=== PATIENT | female | born 1985 | race Caucasian/White ===

== ENCOUNTER → 2017-02-18 | Outpatient (CLI) | payer BC ==
[2017-02-18 10:49] LABS: ABSOLUTE EOSINOPHILS # (AUTO) 0.1 10^3/uL (0.0-0.6); ABSOLUTE LYMPHOCYTES (AUTO) 1.2 10^3/uL (0.5-4.7); ABSOLUTE MONOCYTES (AUTO) 0.8 10^3/uL (0.1-1.4); BASOPHILS % (AUTO) 0.1 % (0-2); EOSINOPHILS % (AUTO) 0.7 % (0-6); HEMOGLOBIN 15.1 g/dL (12.0-15.5); HGB HCT DIFFERENCE -0.7; LYMPHOCYTES % (AUTO) 13.4 % (13-45); MEAN CORPUSCULAR HEMOGLOBIN 30.5 pg (27.0-33.4); MEAN CORPUSCULAR HGB CONC 32.8 g/dL (32.0-36.0); MEAN CORPUSCULAR VOLUME 93 fl (80-97); MONOCYTES % (AUTO) 8.4 % (3-13); RED BLOOD COUNT 4.94 10^6/uL (3.72-5.28); RED CELL DISTRIBUTION WIDTH 14.1 % (11.5-14.0); SEGMENTED NEUTROPHILS % (AUTO) 77.4 % (42-78)
[2017-02-18 11:15] LABS: ALANINE AMINOTRANSFERASE 44 U/L (9-52); ALBUMIN 4.3 g/dL (3.5-5.0); ALKALINE PHOSPHATASE 84 U/L (38-126); ANION GAP 11 (5-19); ASPARTATE AMINO TRANSFERASE 34 U/L (14-36); BILIRUBIN,DIRECT 0.4 mg/dL (0.0-0.4); BILIRUBIN,TOTAL 0.8 mg/dL (0.2-1.3); BLOOD UREA NITROGEN 9 mg/dL (7-20); CALCIUM 9.7 mg/dL (8.4-10.2); CARBON DIOXIDE 26 mmol/L (22-30); CHLORIDE 103 mmol/L (98-107); CHOLESTEROL 207.17 mg/dL (0-200); CREATININE RESULT 0.84 mg/dL (0.52-1.25); Direct HDL 65 mg/dL (>40); GLUCOSE 91 mg/dL (75-110); POTASSIUM 4.9 mmol/L (3.6-5.0); SODIUM 140.2 mmol/L (137-145); TOTAL PROTEIN 7.8 g/dL (6.3-8.2); TRIGLYCERIDES 192 mg/dL (<150)
[2017-02-18 11:26] LABS: DIRECT LDL 120 mg/dL (<100)
[2017-02-18 11:31] LABS: VLDL CHOLESTEROL 38.4 mg/dL (10-31)
== END ==
LOC: OD 10:08
PROVIDERS: ATTEND Psychiatry & Neurology Psychiatry
DX: F43.10 Post-traumatic stress disorder, unspecified (principal)
CPT/HCPCS: 36415; 80053; 80061; 84443; 85025

== ENCOUNTER 2017-05-02 01:51 | Emergency (ER) | payer BC ==
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
--- NOTE | 2017-05-02 05:00 | ER Document Report ---
HPI - HPI Patient complains to provider of: twisted ankle Onset: Just prior to arrival Onset/Duration: Sudden Quality of pain: Throbbing Pain Level: 4 Context: 32 yo female twisted right ankle prior to arrival. Hurts to walk on it. No previous injury. Associated Symptoms: None Exacerbated by: Walking Relieved by: Denies Similar symptoms previously: Yes - long time ago Recently seen / treated by doctor: No - ROS ROS below otherwise negative: Yes Systems Reviewed and Negative: Yes All other systems reviewed and negative - REPRODUCTIVE Reproductive: DENIES: : - DERM Skin Color: Normal Past Medical History - General Information source: Patient - Social History Smoking Status: Current Every Day Smoker Frequency of alcohol use: Occasional Drug Abuse: None Occupation: convenience store Family History: CAD, Hyperlipidemia, Hypertension, Malignancy, Thyroid Disfunction Pulmonary Medical History: Reports: Hx Asthma Neurological Medical History: Reports: Hx Migraine Renal/ Medical History: Denies: Hx Peritoneal Dialysis GI Medical History: Reports: Hx Gastroesophageal Reflux Disease Musculoskeltal Medical History: Reports Hx Muscle Spasm - taken baclofen in past , Reports Hx Musculoskeletal Trauma - low back pain Psychiatric Medical History: Reports: Hx Anxiety, Hx Attention Deficit Hyperactivity Disorder Surgical Hx: Negative - Immunizations Immunizations up to date: No Hx Diphtheria, Pertussis, Tetanus Vaccination: No Vertical Provider Document - CONSTITUTIONAL Agree With Documented VS: Yes Exam Limitations: No Limitations General Appearance: No Apparent Distress - INFECTION CONTROL TRAVEL OUTSIDE OF THE [place] IN LAST 30 DAYS: No - HEENT HEENT: Normocephalic - RESPIRATORY O2 Sat by Pulse Oximetry: 100 - MUSCULOSKELETAL/EXTREMETIES Musculoskeletal/Extremeties: MAEW, FROM, Tender, Edema - dorsal lateral mid foot (non tender base of 5th) and lateral malleolus, Eccymosis - NEURO Level of Consciousness: Awake, Alert, Appropriate Motor/Sensory: No Motor Deficit, No Sensory Deficit - DERM Integumentary: Warm, Dry Course - Vital Signs Vital signs: Temp Pulse Resp BP Pulse Ox 97.4 F 97 20 95/59 L 100 05/02/17 02:02 05/02/17 02:02 05/02/17 02:02 05/02/17 02:02 05/02/17 02:02 Procedures - Immobilization Right Ankle Time completed: 06:05 Pre-Proc Neuro Vasc Exam: Normal Immobilizer type: Crutches, Posterior ankle Performed by: RN Post-Proc Neuro Vasc Exam: Normal Alignment checked and good: Yes Discharge - Discharge Clinical Impression: Right ankle sprain Qualifiers: Encounter type: initial encounter Involved ligament of ankle: unspecified ligament Qualified Code(s): S93.401A - Sprain of unspecified ligament of right ankle, initial encounter Right foot sprain Qualifiers: Encounter type: initial encounter Qualified Code(s): S93.601A - Unspecified sprain of right foot, initial encounter Condition: Good Disposition: HOME, SELF-CARE Instructions: Anti-Inflammatory Medication ([facility]), Use of Crutches ([facility]), Sprain ([facility]), Sprained Ankle ([facility]) Additional Instructions: elevate splint over the weekend crutches see the orthopedist if persists motrin for pain Please complete the patient satisfaction survey if you get one, and return it.. If you do not receive a survey, then you can go to the [facility] website, [email or web address] and place your comments about your very good care. Thank you very much. It was a pleasure being your medical provider today. Prescriptions: Ibuprofen [Motrin 800 mg Tablet] 800 mg PO Q8HP PRN #30 tablet PRN Reason: Forms: Return to Work Referrals: DL CAMARENA MD [ACTIVE STAFF] - Follow up as needed
[2017-05-02] MEDS ORDERED: IBUPROFEN 800 MG TABLET PO ONE (05:02)
--- NOTE | 2017-05-02 05:40 | RADIOLOGY REPORT (SQ) ---
EXAM DESCRIPTION: FOOT RIGHT COMPLETE COMPLETED DATE/TIME: 05/02/2017 5:27 am REASON FOR STUDY: injury COMPARISON: 07/17/2013. NUMBER OF VIEWS: Three views. TECHNIQUE: AP, lateral and oblique radiographic images acquired of the right foot. LIMITATIONS: None. FINDINGS: MINERALIZATION: Normal. BONES: No acute fracture or dislocation. No worrisome bone lesions. 0.4 cm chronic ossicular fragme nt at the medial aspect of the right 1st interphalangeal joint, stable compared with prior exam from July 2013. Small plantar fascial enthesophyte. JOINTS: No effusions. SOFT TISSUES: No soft tissue swelling. No foreign body. OTHER: No other significant finding. IMPRESSION: NO RADIOGRAPHIC EVIDENCE OF ACUTE INJURY. TECHNICAL DOCUMENTATION: JOB ID: [id number] [employer]- All Rights Reserved
[2017-05-02 06:14] VITALS: BP 121/81
== END 2017-05-02 06:12 | disposition home or self-care (01) ==
LOC: EEVIPCON 01:51 → ER 01:51
PROC: 2W3QX1Z Immobilization of Right Lower Leg using Splint (ICD-10-PCS; principal; 2017-05-02)
DX: S93.401A Sprain of unspecified ligament of right ankle, initial encounter (principal); S93.601A Unspecified sprain of right foot, initial encounter; X58.XXXA Exposure to other specified factors, initial encounter; F17.200 Nicotine dependence, unspecified, uncomplicated; K21.9 Gastro-esophageal reflux disease without esophagitis
CPT/HCPCS: 99283

== ENCOUNTER 2018-03-17 06:57 | Emergency (ER) | payer BC ==
[2018-03-17] MEDS ORDERED: IPRATROPIUM/ALBUTEROL 0.5-2.5 MG/3 ML AMPUL NEB ONE ×2 (07:08→07:17)
[2018-03-17] MEDS ORDERED: METHYLPREDNISOLONE INJ 125 MG/2 ML SDV IV ONE (07:15)
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
[2018-03-17] MEDS ORDERED: CLONAZEPAM 1 MG TABLET PO ONE (07:44)
--- NOTE | 2018-03-17 07:56 | RADIOLOGY REPORT (SQ) ---
EXAM DESCRIPTION: XR CHEST 1 VIEW COMPLETED DATE/TME: 03/17/2018 07:15 CLINICAL HISTORY: 32 years Female, sob COMPARISON: 1.7.14 NUMBER OF VIEWS/TECHNIQUE: 1/AP FINDINGS: Adequate lung volume, clear parenchyma, normal cardiac silhouette, and intact bony thorax. IMPRESSION: No acute cardiopulmonary findings.
[2018-03-17 08:14] LABS: ABSOLUTE EOSINOPHILS # (AUTO) 0.1 10^3/uL (0.0-0.6); ABSOLUTE LYMPHOCYTES (AUTO) 2.9 10^3/uL (0.5-4.7); ABSOLUTE MONOCYTES (AUTO) 0.8 10^3/uL (0.1-1.4); ABSOLUTE NEUT (AUTO) 4.7 10^3/uL (1.7-8.2); BASOPHILS % (AUTO) 0.4 % (0-2); EOSINOPHILS % (AUTO) 1.4 % (0-6); HEMOGLOBIN 14.2 g/dL (12.0-15.5); LYMPHOCYTES % (AUTO) 33.7 % (13-45); MEAN CORPUSCULAR HEMOGLOBIN 31.4 pg (27.0-33.4); MEAN CORPUSCULAR HGB CONC 35.4 g/dL (32.0-36.0); MEAN CORPUSCULAR VOLUME 89 fl (80-97); MONOCYTES % (AUTO) 9.5 % (3-13); PLATELET COUNT 217 10^3/uL (150-450); RED BLOOD COUNT 4.51 10^6/uL (3.72-5.28); RED CELL DISTRIBUTION WIDTH 12.9 % (11.5-14.0); TOTAL CELLS COUNTED % (AUTO) 100 %; WHITE BLOOD COUNT 8.6 10^3/uL (4.0-10.5)
[2018-03-17 08:31] LABS: ANION GAP 13 (5-19); BLOOD UREA NITROGEN 15 mg/dL (7-20); CALCIUM 9.7 mg/dL (8.4-10.2); CARBON DIOXIDE 23 mmol/L (22-30); CHLORIDE 105 mmol/L (98-107); GLUCOSE 74 mg/dL (75-110); POTASSIUM 3.9 mmol/L (3.6-5.0); SODIUM 140.8 mmol/L (137-145)
[2018-03-17 09:11] VITALS: BP 110/67
--- NOTE | 2018-03-17 22:06 | EKG REPORT ---
SEVERITY:- BORDERLINE ECG - SINUS RHYTHM SHORT SC INTERVAL, ACCELERATED AV CONDUCTION : Confirmed by: Saleem Kumar 17-Mar-2018 22:05:35
== END 2018-03-17 09:26 | disposition home or self-care (01) ==
LOC: ER 06:57
DX: J45.909 Unspecified asthma, uncomplicated (principal); T50.906A Underdosing of unspecified drugs, medicaments and biological substances, initial encounter; Z91.120 Patient's intentional underdosing of medication regimen due to financial hardship; Z91.14 Patient's other noncompliance with medication regimen; F41.9 Anxiety disorder, unspecified; R06.02 Shortness of breath
CPT/HCPCS: 93005; 94640 ×2; 99285; 96374; 36415; 85025; 80048; 71045; 93010; J2930; J7620

== ENCOUNTER 2019-09-07 08:13 | Emergency (ER) | payer BC ==
[2019-09-07] MEDS ORDERED: ALBUTEROL SULFATE HFA (90 MCG/PUFF) 8 GM MDI (1 MDI/ER DISP) IH PRN (09:06)
--- NOTE | 2019-09-07 09:08 | ER Document Report ---
ED General - General Chief Complaint: Ear Pain Stated Complaint: EAR PAIN/SORE THROAT/WHEEZING/COUGH Time Seen by Provider: 09/07/19 08:50 Notes: HPI: 34-year-old female who presents today with the onset 2 days ago of runny nose, congestion, cough, ear pain, with sore throat. No vomiting or diarrhea. No chest pain. Patient does have a history of asthma. ROS: See HPI All other review of systems reviewed and otherwise negative Reviewed vital signs and nursing note as charted by RN. PHYSICAL EXAM: CONSTITUTIONAL: Alert and oriented and responds appropriately to questions. Well-appearing; well-nourished HEAD: Normocephalic; atraumatic EYES: PERRL; Conjunctivae clear, sclerae non-icteric ENT: Normal nose; bilateral nonpurulent nasal rhinorrhea; moist mucous membranes; TMs clear bilaterally; no mastoid tenderness or swelling; pharynx with minimal bilateral nonpurulent tonsillar swelling with a midline nonswollen uvula NECK: Supple without meningismus; non-tender; no cervical lymphadenopathy, no masses CARD: Regular rate and rhythm; no murmurs; symmetric distal pulses RESP: Normal chest excursion without splinting or tachypnea; breath sounds clear and equal bilaterally; no wheezing with scattered rhonchi ABD/GI: Normal bowel sounds; non-distended; soft, non-tender; no palpable organomegaly or masses BACK: The back appears normal and is non-tender to palpation EXT: Normal ROM in all joints; non-tender to palpation; no edema SKIN: No acute lesions noted NEURO: CN 2-12 intact; 5/5 bilateral upper and lower extremity strength with sensation intact to light touch PSYCH: The patient's mood and manner are appropriate. Grooming and personal hygiene are appropriate. TRAVEL OUTSIDE OF THE [place] IN LAST 30 DAYS: No - Related Data Allergies/Adverse Reactions: No Known Allergies Allergy (Verified 09/07/19 08:27) Past Medical History - Social History Smoking Status: Current Every Day Smoker Chew tobacco use (# tins/day): No Frequency of alcohol use: None Drug Abuse: None Family History: CAD, Hyperlipidemia, Hypertension, Malignancy, Thyroid Disfunction Patient has suicidal ideation: No Patient has homicidal ideation: No Pulmonary Medical History: Reports: Hx Asthma Neurological Medical History: Reports: Hx Migraine Renal/ Medical History: Denies: Hx Peritoneal Dialysis GI Medical History: Reports: Hx Gastroesophageal Reflux Disease Musculoskeletal Medical History: Reports Hx Muscle Spasm - taken baclofen in past, Reports Hx Musculoskeletal Trauma - low back pain Psychiatric Medical History: Reports: Hx Anxiety, Hx Attention Deficit Hyperactivity Disorder, Hx Depression - Immunizations Immunizations up to date: No Hx Diphtheria, Pertussis, Tetanus Vaccination: No Physical Exam - Vital signs Vitals: Temp Pulse Resp BP Pulse Ox 98.3 F 88 18 138/90 H 96 09/07/19 08:28 09/07/19 08:28 09/07/19 08:28 09/07/19 08:28 09/07/19 08:28 Course - Re-evaluation Re-evalutation: 09/07/19 09:08 Given the above history and physical we will obtain a rapid strep, influenza, x- ray of the chest, and reassess. Patient does live with a 90-year-old female. I would like to check for influenza secondary to the possible at home contacts. I will also provide an albuterol inhaler given that the patient when at home is recently. I do have a low pretest probability for serious bacterial infection, ACS, PE, or DVT. Low suspicion for epiglottitis or tracheitis. 09/07/19 09:35 Strep is negative. X-ray of the chest as recorded. Awaiting influenza. - Vital Signs Vital signs: Temp Pulse Resp BP Pulse Ox 98.3 F 88 18 138/90 H 96 09/07/19 08:28 09/07/19 08:28 09/07/19 08:28 09/07/19 08:28 09/07/19 08:28 Discharge - Discharge Clinical Impression: Nasal congestion, Cough, Sore throat (viral) Condition: Good Disposition: HOME, SELF-CARE Additional Instructions: Come back immediately for any worsening cough, sore throat, difficulty breathing or swallowing, or any other acute symptoms. Please make sure that you follow-up with the primary care physician. Take 2 puffs of the albuterol inhaler every 4 hours for the next 48 hours and every 6 hours as needed after that for cough and wheeze.
--- NOTE | 2019-09-07 09:28 | RADIOLOGY REPORT (SQ) ---
EXAM DESCRIPTION: CHEST 2 VIEWS COMPLETED DATE/TIME: 09/07/2019 9:17 am REASON FOR STUDY: 12; cough congestion COMPARISON: 08/23/2013 EXAM PARAMETERS: NUMBER OF VIEWS: two views TECHNIQUE: Digital Frontal and Lateral radiographic views of the chest acquired. RADIATION DOSE: NA LIMITATIONS: none FINDINGS: LUNGS AND PLEURA: No opacities, masses or pneumothorax. No pleural effusion. MEDIASTINUM AND HILAR STRUCTURES: No masses or contour abnormalities. HEART AND VASCULAR STRUCTURES: Heart normal size. No evidence for failure. BONES: No acute findings. HARDWARE: None in the chest. OTHER: No other significant finding. IMPRESSION: NO ACUTE RADIOGRAPHIC FINDING IN THE CHEST. TECHNICAL DOCUMENTATION: JOB ID: [id number] [employer] All Rights Reserved Reading location - IP/workstation name: [email or web address]
[2019-09-07] MEDS ORDERED: DEXAMETHASONE 4 MG TABLET PO ONE (09:36)
[2019-09-07 10:24] LABS: A TYPE INFLUENZA AG NEGATIVE (NEGATIVE); B INFLUENZA AG NEGATIVE (NEGATIVE)
[2019-09-07 10:39] VITALS: BP 129/79
== END 2019-09-07 10:39 | disposition home or self-care (01) ==
LOC: ER 08:13
DX: J02.8 Acute pharyngitis due to other specified organisms (principal); B97.89 Other viral agents as the cause of diseases classified elsewhere; R09.81 Nasal congestion; R05 Cough; J34.89 Other specified disorders of nose and nasal sinuses; H92.09 Otalgia, unspecified ear; J45.909 Unspecified asthma, uncomplicated; F17.200 Nicotine dependence, unspecified, uncomplicated
CPT/HCPCS: 99283; 87070; 87880; 87804; 71046; J8540; J3490

== ENCOUNTER 2019-09-10 06:32 | Emergency (ER) | payer BC ==
--- NOTE | 2019-09-10 06:38 | ER Document Report ---
ED Respiratory Problem - General Chief Complaint: Shortness Of Breath Stated Complaint: SHORTNESS OF BREATH Time Seen by Provider: 09/10/19 06:36 TRAVEL OUTSIDE OF THE [place] IN LAST 30 DAYS: No - Related Data Allergies/Adverse Reactions: No Known Allergies Allergy (Verified 09/07/19 08:27) Past Medical History - Social History Smoking Status: Unknown if Ever Smoked Family History: CAD, Hyperlipidemia, Hypertension, Malignancy, Thyroid Disfunction Pulmonary Medical History: Reports: Hx Asthma Neurological Medical History: Reports: Hx Migraine Renal/ Medical History: Denies: Hx Peritoneal Dialysis GI Medical History: Reports: Hx Gastroesophageal Reflux Disease Musculoskeletal Medical History: Reports Hx Muscle Spasm - taken baclofen in past, Reports Hx Musculoskeletal Trauma - low back pain Psychiatric Medical History: Reports: Hx Anxiety, Hx Attention Deficit Hyperactivity Disorder, Hx Depression - Immunizations Immunizations up to date: No Hx Diphtheria, Pertussis, Tetanus Vaccination: No Physical Exam - Vital signs Vitals: Temp Pulse Resp BP Pulse Ox 98.0 F 117 H 20 113/80 97 09/10/19 06:51 09/10/19 06:51 09/10/19 06:51 09/10/19 06:51 09/10/19 06:51 Course - Vital Signs Vital signs: Temp Pulse Resp BP Pulse Ox 98.0 F 117 H 20 113/80 97 09/10/19 06:51 09/10/19 06:51 09/10/19 06:51 09/10/19 06:51 09/10/19 06:51 Discharge - Discharge Clinical Impression: Cough, Post-nasal drainage, Cough in adult Condition: Good Disposition: LEFT WITHOUT BEING SEEN Instructions: Cough Suppressant & Expectorant Medications
[2019-09-10 06:53] VITALS: BP 113/80
== END 2019-09-10 07:30 | disposition left against medical advice (07) ==
LOC: ER 06:32
DX: R05 Cough (principal); R06.02 Shortness of breath; R09.82 Postnasal drip
CPT/HCPCS: 99281

== ENCOUNTER 2019-09-11 21:07 | Emergency (ER) | payer BC ==
--- NOTE | 2019-09-11 22:52 | ER Document Report ---
ED Medical Screen (RME) - General Chief Complaint: Congestion Stated Complaint: SORE THROAT/DIFFICULTY BREATHING Time Seen by Provider: 09/11/19 22:33 Mode of Arrival: Ambulatory Information source: Patient Notes: 34-year-old female with history of asthma presents emergency department with complaints of productive cough difficulty breathing sore throat difficulty swallowing and fever. Patient was evaluated here on September 07 for the same symptoms. She reports they are worse. Patient with hoarse voice and frequent cough. Respiratory rate even unlabored . I have greeted and performed a rapid initial assessment of this patient. A comprehensive ED assessment and evaluation of the patient, analysis of test results and completion of the medical decision making process will be conducted by additional ED providers. TRAVEL OUTSIDE OF THE [place] IN LAST 30 DAYS: No - Related Data Allergies/Adverse Reactions: No Known Allergies Allergy (Verified 09/07/19 08:27) Past Medical History Pulmonary Medical History: Reports: Hx Asthma Neurological Medical History: Reports: Hx Migraine Renal/ Medical History: Denies: Hx Peritoneal Dialysis GI Medical History: Reports: Hx Gastroesophageal Reflux Disease Musculoskeltal Medical History: Reports Hx Muscle Spasm - taken baclofen in past, Reports Hx Musculoskeletal Trauma - low back pain Psychiatric Medical History: Reports: Hx Anxiety, Hx Attention Deficit Hyperactivity Disorder, Hx Depression - Immunizations Immunizations up to date: No Hx Diphtheria, Pertussis, Tetanus Vaccination: No Physical Exam - Vital signs Vitals: Temp Pulse Resp BP Pulse Ox 98.6 F 97 20 117/57 L 98 09/11/19 21:58 09/11/19 21:58 09/11/19 21:58 09/11/19 21:58 09/11/19 21:58 Course - Vital Signs Vital signs: Temp Pulse Resp BP Pulse Ox 98.6 F 97 20 117/57 L 98 09/11/19 21:58 09/11/19 21:58 09/11/19 21:58 09/11/19 21:58 09/11/19 21:58
--- NOTE | 2019-09-12 | RADIOLOGY REPORT (SQ) ---
EXAM DESCRIPTION: XR CHEST 2 VIEWS COMPLETED DATE/TME: 09/11/2019 22:50 CLINICAL HISTORY: 34 years, Female, cough fever COMPARISON: 03/17/2018 chest, 09/07/2019 chest NUMBER OF VIEWS: 2 TECHNIQUE: 2 view chest LIMITATIONS: None. FINDINGS: Heart size normal. Lungs clear. No pneumothorax IMPRESSION: Negative chest copyright 2010 [employer]- All Rights Reserved
[2019-09-12] MEDS ORDERED: LIDOCAINE 2% INJ-PF (20 MG/ML) 10 ML AMPUL NEB ONE (00:28)
[2019-09-12] MEDS ORDERED: METHYLPREDNISOLONE INJ 125 MG/2 ML SDV IV ONE (00:28)
[2019-09-12 01:17] LABS: ABSOLUTE BASOPHILS # (AUTO) 0.1 10^3/uL (0.0-0.2); ABSOLUTE EOSINOPHILS # (AUTO) 0.2 10^3/uL (0.0-0.6); ABSOLUTE LYMPHOCYTES (AUTO) 2.2 10^3/uL (0.5-4.7); ABSOLUTE NEUT (AUTO) 8.8 10^3/uL (1.7-8.2); BASOPHILS % (AUTO) 0.5 % (0-2); HEMOGLOBIN 14.3 g/dL (12.0-15.5); LYMPHOCYTES % (AUTO) 17.7 % (13-45); MEAN CORPUSCULAR HEMOGLOBIN 31.4 pg (27.0-33.4); MEAN CORPUSCULAR HGB CONC 34.9 g/dL (32.0-36.0); MEAN CORPUSCULAR VOLUME 90 fl (80-97); MONOCYTES % (AUTO) 8.5 % (3-13); PLATELET COUNT 210 10^3/uL (150-450); RED BLOOD COUNT 4.56 10^6/uL (3.72-5.28); RED CELL DISTRIBUTION WIDTH 13.7 % (11.5-14.0); SEGMENTED NEUTROPHILS % (AUTO) 71.3 % (42-78); TOTAL CELLS COUNTED % (AUTO) 100 %; WHITE BLOOD COUNT 12.3 10^3/uL (4.0-10.5)
[2019-09-12 02:22] LABS: ALBUMIN 3.8 g/dL (3.5-5.0); ALKALINE PHOSPHATASE 128 U/L (38-126); ANION GAP 8 (5-19); ASPARTATE AMINO TRANSFERASE 29 U/L (14-36); BILIRUBIN,DIRECT 0.3 mg/dL (0.0-0.4); BILIRUBIN,TOTAL 0.8 mg/dL (0.2-1.3); BLOOD UREA NITROGEN 8 mg/dL (7-20); CALCIUM 9.3 mg/dL (8.4-10.2); CARBON DIOXIDE 27 mmol/L (22-30); CHLORIDE 102 mmol/L (98-107); GLUCOSE 93 mg/dL (75-110); POTASSIUM 4.4 mmol/L (3.6-5.0)
--- NOTE | 2019-09-12 02:32 | ER Document Report ---
Entered by ANALISA BUSTILLOS SCRIBE 09/12/19 0014 Acting as scribe for:СЕРГЕЙ GOLDEN IV, MD ED ENT - General Chief Complaint: Congestion Stated Complaint: SORE THROAT/DIFFICULTY BREATHING Time Seen by Provider: 09/11/19 22:33 Mode of Arrival: Ambulatory Information source: Patient Notes: This 34 year old female patient presents to the emergency department today with complaints of a sore throat. Patient was seen here on 09/05 and was checked in again yesterday for the same complaints although yesterday she left prior to being seen. Patient reports that she was sent home on steroids one week ago and her throat initially began feeling better but it has now gotten worse. Patient also complains of a cough with green, yellow, and cream colored sputum. TRAVEL OUTSIDE OF THE [place] IN LAST 30 DAYS: No - Related Data Allergies/Adverse Reactions: No Known Allergies Allergy (Verified 09/07/19 08:27) Past Medical History - General Information source: Patient - Social History Smoking Status: Current Every Day Smoker Cigarette use (# per day): Yes Frequency of alcohol use: None Drug Abuse: None Lives with: Family Family History: Reviewed & Not Pertinent, CAD, Hyperlipidemia, Hypertension, Malignancy, Thyroid Disfunction Patient has suicidal ideation: No Patient has homicidal ideation: No Pulmonary Medical History: Reports: Hx Asthma Neurological Medical History: Reports: Hx Migraine Renal/ Medical History: Denies: Hx Peritoneal Dialysis GI Medical History: Reports: Hx Gastroesophageal Reflux Disease Musculoskeletal Medical History: Reports Hx Muscle Spasm - taken baclofen in [facility], Reports Hx Musculoskeletal Trauma - low back pain Psychiatric Medical History: Reports: Hx Anxiety, Hx Attention Deficit Hyperactivity Disorder, Hx Depression - Immunizations Immunizations up to date: No Hx Diphtheria, Pertussis, Tetanus Vaccination: No Review of Systems - Review of Systems Constitutional: No symptoms reported EENT: See HPI, Throat pain Cardiovascular: No symptoms reported Respiratory: See HPI, Cough, Sputum Gastrointestinal: No symptoms reported Genitourinary: No symptoms reported Female Genitourinary: No symptoms reported Musculoskeletal: No symptoms reported Skin: No symptoms reported Hematologic/Lymphatic: No symptoms reported Neurological/Psychological: No symptoms reported -: Yes All other systems reviewed and negative Physical Exam - Vital signs Vitals: Temp Pulse Resp BP Pulse Ox 98.6 F 97 20 117/57 L 98 09/11/19 21:58 09/11/19 21:58 09/11/19 21:58 09/11/19 21:58 09/11/19 21:58 - Notes Notes: Physical Exam: General: Alert, appears well. HEENT: Normocephalic. Atraumatic. PERRL. Extraocular movements intact. Oropharynx clear. Neck: Supple. Non-tender. Respiratory: No respiratory distress. Clear and equal breath sounds bilaterally. Cardiovascular: Regular rate and rhythm. Abdominal: Normal Inspection. Non-tender. No distension. Normal Bowel Sounds. Back: No gross abnormalities. Extremities: Moves all four extremities. Upper extremities: Normal inspection. Normal ROM. Lower extremities: Normal inspection. No edema. Normal ROM. Neurological: Normal cognition. AAOx4. Normal speech. Psychological: Normal affect. Normal Mood. Skin: Warm. Dry. Normal color. Course - Re-evaluation Re-evalutation: 09/12/19 03:12 Results of ED MSE discussed with patient. All questions were answered prior to discharge. Emergency signs and symptoms, reasons to return to the emergency department discussed with patient. - Vital Signs Vital signs: Temp Pulse Resp BP Pulse Ox 98.6 F 97 20 117/57 L 98 09/11/19 21:58 09/11/19 21:58 09/11/19 21:58 09/11/19 21:58 09/11/19 21:58 - Laboratory Result Diagrams: 09/12/19 00:55 09/12/19 00:55 Laboratory results interpreted by me: 09/12/19 09/12/19 00:55 00:55 WBC 12.3 H Absolute Neuts (auto) 8.8 H Alkaline Phosphatase 128 H Discharge - Discharge Clinical Impression: Acute tonsillitis Qualifiers: Pharyngitis/tonsillitis etiology: unspecified etiology Qualified Code(s): J03.90 - Acute tonsillitis, unspecified Condition: Good Disposition: HOME, SELF-CARE Instructions: Tonsillitis ([facility]) Additional Instructions: Return to the Emergency Department without delay if any worse. HOME CARE INSTRUCTIONS & INFORMATION: Thank you for choosing us for your medical needs. We hope you're satisfied with the care you received. After you leave, you must properly care for your problem and, at the same time, observe its progress. Any condition can change. Some illnesses can change rapidly over hours or days. If your condition worsens, return to the Emergency Department or see your physician promptly. ABOUT YOUR X-RAYS AND EKG'S: If you had an EKG or X-rays taken, they have been read by the Emergency Physician. The X-rays and EKG's will also be read by a Radiologist or Earth Science Technical Officer within 24 hours. If discrepancies are noted, you will be notified by telephone. Please be certain the ED has a correct telephone number & address where you can be reached. Also, realize that some fractures or abnormalities do not show up on initial X-rays. If your symptoms continue, see your physician. ABOUT YOUR LABORATORY TEST: If you had laboratory tests, the results have been reviewed by the Emergency Physician. Some test results (for example cultures) may not be available for several days. You will be contacted if any test result shows you need additional treatment. Please be certain the ED has a correct telephone number and address where you can be reached. ABOUT YOUR MEDICATIONS: You will receive instructions on how to take your medicine on the prescription label you receive. Additional information may be provided by the Pharmacy. If you have questions afterwards, call the ED for clarification or further instructions. Some prescribed medications may cause dr owsiness. Do not perform tasks such as driving a car or operating machinery without consulting your Pharmacist. If you feel you need a refill of pain medication, your condition will need re-evaluation. Please do not call for a refill of any medication. ABOUT YOUR SIGNATURE: Signature of this document acknowledges to followin. Understanding that you received emergency treatment and that you may be released before al medical problems are known or treated. Please be certain the ED has a correct phone number & address where you can be reached. 2. Acknowledgement that you will arrange for follow-up care as recommended. 3. Authorization for the Emergency Physician to provide information to your follow-up Physician in order to maximize your care. AT ANY TIME, IF YOUR SYMPTOMS CHANGE SIGNIFICANTLY OR WORSEN OR YOU DEVELOP NEW SYMPTOMS, RETURN TO THE EMERGENCY DEPARTMENT IMMEDIATELY FOR RE-EVALUATION. OUR GOAL IS TO PROVIDE EXCELLENT MEDICAL CARE! WE HOPE THAT WE HAVE MET YOUR EXPECTATIONS DURING YOUR EMERGENCY DEPARTMENT VISIT AND THAT YOU FEEL YOU HAVE RECEIVED EXCELLENT CARE! Prescriptions: Hydrocodone/Chlorphen P-Stirex [Hydrocodone-Chlorphen ER Susp] 5 ml PO Q12HP PRN #30 [email or web address] PRN Reason: cough Hydrocodone/Chlorphen P-Stirex [Hydrocodone-Chlorpheniram Susp] 5 ml PO Q12HP P RN #30 [email or web address] PRN Reason: cough Forms: Return to Work Referrals: ORALIA GRAVES MD [HONORARY] - Follow up as needed I personally performed the services described in the documentation, reviewed and edited the documentation which was dictated to the scribe in my presence, and it accurately records my words and actions.
--- NOTE | 2019-09-12 02:56 | RADIOLOGY REPORT (SQ) ---
EXAM DESCRIPTION: CT NECK WITH IV CONTRAST COMPLETED DATE/TME: 09/11/2019 22:50 CLINICAL HISTORY: 34 years, Female, difficulty swallowing, hoarse voice COMPARISON: None. TECHNIQUE: 247 Images stored on PACS. All CT scanners at this facility use dose modulation, iterative reconstruction, and/or weight based dosing when appropriate to reduce radiation dose to as low as reasonably achievable (ALARA). [facility]: Dose Right [facility]: CareDose [facility]: Dose Right [facility]: Teradose 4D [facility]: [employer] LIMITATIONS: None. FINDINGS: The visualized brain parenchyma is unremarkable. The paranasal sinuses and mastoid air cells are well aerated. The globes are intact. Limited evaluation of the lung apices is unremarkable. The epiglottis is normal. The prevertebral soft tissues are normal. The thyroid gland enhances normally. The parotid and some in either glands are unremarkable. There is significant tonsillar hypertrophy/enlargement causing narrowing of the upper airway. However, no discrete or defined abscess. The paravertebral fat planes are preserved. IMPRESSION: Severe tonsillitis causing narrowing of the upper airway. No discrete or defined abscess TECHNICAL DOCUMENTATION: Quality ID # [id number]: Final reports with documentation of one or more dose reduction techniques (e.g., Automated exposure control, adjustment of the mA and/or kV according to patient size, use of iterative reconstruction technique) copyright 2011 [employer]- All Rights Reserved
[2019-09-12] MEDS ORDERED: BENZONATATE 100 MG CAPSULE PO ONE (03:11)
[2019-09-12] MEDS ORDERED: PENICILLIN G BENZATHINE 1.2 MILLION UNIT/2 ML DISP.SYRIN IM ONE (03:11)
[2019-09-12 03:23] VITALS: BP 121/88
== END 2019-09-12 03:31 | disposition home or self-care (01) ==
LOC: ER 21:07
DX: J03.90 Acute tonsillitis, unspecified (principal); R05 Cough; F17.210 Nicotine dependence, cigarettes, uncomplicated; J45.909 Unspecified asthma, uncomplicated
CPT/HCPCS: 94640; 99285; 96372; 96374; 36415; 87070; 87880; 85025; 80053; 71046; 70491; J2930; J0561; J3490

== ENCOUNTER 2019-09-21 10:54 | Emergency (ER) | payer BC ==
[2019-09-21] MEDS ORDERED: IPRATROPIUM/ALBUTEROL 0.5-2.5 MG/3 ML AMPUL NEB ONE (12:38)
[2019-09-21] MEDS ORDERED: PREDNISONE 20 MG TABLET PO ONE (12:38)
--- NOTE | 2019-09-21 12:40 | ER Document Report ---
ED Medical Screen (RME) - General Chief Complaint: Sore Throat Stated Complaint: SORE THROAT Time Seen by Provider: 09/21/19 12:34 Notes: HPI: 34-year-old female presenting back to the emergency department again for evaluation of continued sore throat and shortness of breath. Patient states she is been seen several times in the last week for sore throat and difficulty breathing. States she has an asthma history. States she was given a shot of steroids and antibiotics when she was here last time which improved the throat discomfort although she still has some discomfort with swallowing. Patient states that she has been using the albuterol inhaler but she still feels like she has shortness of breath and wheezing. No fever. Did not follow-up with a PCP for further evaluation I have greeted and performed a rapid initial assessment of this patient. A comprehensive ED assessment and evaluation of the patient, analysis of test results and completion of the medical decision making process will be conducted by additional ED providers PHYSICAL EXAMINATION: GENERAL: Well-appearing, well-nourished and in mild acute distress. HEAD: Atraumatic, normocephalic. EYES: sclera anicteric, conjunctiva are normal. ENT: Moist mucous membranes. No soft palate swelling, uvula is midline, phonation is normal NECK: Normal range of motion LUNGS: Patient is hyperventilating. Breath sounds are slightly decreased with very trace expiratory wheezing HEART: 2+ radial pulses bilaterally, regular rate and rhythm ABD: limited by positioning for exam in triage. EXTREMITIES: no pitting or edema. No cyanosis. NEUROLOGICAL: No focal neurological deficits. Moves all extremities spontaneously and on command. PSYCH: Normal mood, normal affect. SKIN: Warm, Dry, normal turgor, no rashes or lesions noted. TRAVEL OUTSIDE OF THE [place] IN LAST 30 DAYS: No - Related Data Allergies/Adverse Reactions: No Known Allergies Allergy (Verified 09/07/19 08:27) Past Medical History Pulmonary Medical History: Reports: Hx Asthma Neurological Medical History: Reports: Hx Migraine Renal/ Medical History: Denies: Hx Peritoneal Dialysis GI Medical History: Reports: Hx Gastroesophageal Reflux Disease Musculoskeltal Medical History: Reports Hx Muscle Spasm - taken baclofen in past, Reports Hx Musculoskeletal Trauma - low back pain Psychiatric Medical History: Reports: Hx Anxiety, Hx Attention Deficit Hyperactivity Disorder, Hx Depression - Immunizations Immunizations up to date: No Hx Diphtheria, Pertussis, Tetanus Vaccination: No Physical Exam - Vital signs Vitals: Temp Pulse Resp BP Pulse Ox 97.5 F 92 22 H 109/84 100 09/21/19 12:09/21/19 12:09/21/19 12:09/21/19 12:09/21/19 12:26 Course - Vital Signs Vital signs: Temp Pulse Resp BP Pulse Ox 97.5 F 92 22 H 109/84 100 09/21/19 12:09/21/19 12:09/21/19 12:09/21/19 12:09/21/19 12:26
--- NOTE | 2019-09-21 17:06 | ER Document Report ---
ED General - General Chief Complaint: Sore Throat Stated Complaint: SORE THROAT Time Seen by Provider: 09/21/19 12:34 Notes: Patient is a 34-year-old white female who returns for her fourth visit, she has been seen here 4 times since September 07 for the same symptoms. She was previously treated for viral syndrome. Returned and had a CT scan of the neck and swabs. She states the CT scan was normal the neck swabs were normal but she was given prednisone and a shot of penicillin in the "butt". She states she started feeling some better but her symptoms has returned. She used all of her hydrocodone cough syrup and has only "2 puffs left" of her albuterol inhaler. She returns because she is not completely improved or better by this point. She has not followed up with ENT nor outpatient as previously prescribed. She denies any new or worsening symptoms. She denies fever chills or night sweats. No difficulty breathing or trouble with secretions. No tongue swelling. TRAVEL OUTSIDE OF THE [place] IN LAST 30 DAYS: No - Related Data Allergies/Adverse Reactions: No Known Allergies Allergy (Verified 09/07/19 08:27) Past Medical History - Social History Smoking Status: Current Every Day Smoker Family History: Reviewed & Not Pertinent, CAD, Hyperlipidemia, Hypertension, Malignancy, Thyroid Disfunction Patient has suicidal ideation: No Patient has homicidal ideation: No Pulmonary Medical History: Reports: Hx Asthma Neurological Medical History: Reports: Hx Migraine Renal/ Medical History: Denies: Hx Peritoneal Dialysis GI Medical History: Reports: Hx Gastroesophageal Reflux Disease Musculoskeletal Medical History: Reports Hx Muscle Spasm - taken baclofen in past, Reports Hx Musculoskeletal Trauma - low back pain Psychiatric Medical History: Reports: Hx Anxiety, Hx Attention Deficit Hyperactivity Disorder, Hx Depression - Immunizations Immunizations up to date: No Hx Diphtheria, Pertussis, Tetanus Vaccination: No Review of Systems - Review of Systems EENT: Other - Nasal drainage, sore throat, tonsillitis Respiratory: Cough -: Yes All other systems reviewed and negative Physical Exam - Vital signs Vitals: Temp Pulse Resp BP Pulse Ox 97.5 F 92 22 H 109/84 100 09/21/19 12:26 09/21/19 12:26 09/21/19 12:26 09/21/19 12:26 09/21/19 12:26 - General General appearance: Appears well, Alert - HEENT Head: Normocephalic, Atraumatic Eyes: Normal Conjunctiva: Normal Extraocular movements intact: Yes Ears: Normal External canal: Normal Tympanic membrane: Normal Sinus: Normal Nasal: Normal Mouth/Lips: Normal Mucous membranes: Moist Pharynx: Other - Postnasal drainage appreciated. No pharyngeal edema. Uvula is midline without edema or erythema. Airways patent. Patient handling secretions well. No sublingual or submental swelling. No trismus. There is some mild tonsillar hypertrophy with minimal erythema, no exudate. Neck: Lymphadenopathy - Tender - Cardiovascular Rhythm: Regular Heart sounds: Normal auscultation Murmur: No - Abdominal Inspection: Normal Distension: No distension Bowel sounds: Normal Tenderness: Tender - Very mild left upper quadrant to deep palpation Organomegaly: No organomegaly - Neurological Neuro grossly intact: Yes Cognition: Normal Orientation: AAOx4 [place] Coma Scale Eye Opening: Spontaneous [place] Coma Scale Verbal: Oriented [place] Coma Scale Motor: Obeys Commands [place] Coma Scale Total: 15 Speech: Normal - Psychological Associated symptoms: Normal affect, Normal mood - Skin Skin Temperature: Warm Skin Moisture: Dry Skin Color: Normal Course - Re-evaluation Re-evalutation: 09/21/19 18:18 Foard negative. Patient has not followed previous guidance and followed up outpatient. She is requesting a minimum of 3 days off of work to try to rest and recover. We will provide her with a few days worth of steroids outpatient as well as refill her albuterol inhaler and prescribed a lidocaine oral pharyngeal solution for her sore throat. She is previously been treated for strep, does not have mono, pneumonia was ruled out and influenza was ruled out. Suspect lingering viral syndrome however I encouraged patient to follow-up with ENT for reevaluation with specialists. She advised if I provide the name for her that she will indeed follow-up. I counseled her at length to return here or any ER immediately with any new, persistent or worsening symptoms. She verbalized understood and agreed. - Vital Signs Vital signs: Temp Pulse Resp BP Pulse Ox 97.5 F 92 22 H 109/84 100 09/21/19 12:26 09/21/19 12:26 09/21/19 12:26 09/21/19 12:09/21/19 12:26 Discharge - Discharge Clinical Impression: Tonsillitis Condition: Stable Disposition: HOME, SELF-CARE Instructions: Tonsillitis ([facility]), Sore Throat ([facility]) Additional Instructions: Please follow-up with the ear nose and throat doctor as referred. Return here or any ER immediately with any new, persistent or worsening symptoms. Prescriptions: Prednisone [Deltasone 20 mg Tablet] 40 mg PO DAILY #10 tablet Albuterol Sulfate [Proair Hfa Inhalation Aerosol 8.5 gm Mdi] 1 puff IH Q6 PRN #1 mdi PRN Reason: Lidocaine HCl [Xylocaine 2% Viscous Soln 15 ml Udcup] 15 ml PO QID PRN #60 ml PRN Reason: Referrals: DARSHAN GUERRERO DO [ASSOCIATE] - Follow up as needed
[2019-09-21 18:34] VITALS: BP 123/79
== END 2019-09-21 18:35 | disposition home or self-care (01) ==
LOC: ER 10:54
DX: J03.90 Acute tonsillitis, unspecified (principal); F17.200 Nicotine dependence, unspecified, uncomplicated; J45.909 Unspecified asthma, uncomplicated; R05 Cough; R09.82 Postnasal drip
CPT/HCPCS: 94640; 99283; 36415; 86308; J7512; J7620